=== PATIENT | female | born 1950 ===

== ENCOUNTER 2023-03-11 05:11 | Day surgery (SDC) | payer OTHER ==
[2023-03-07 08:27] LABS: HEMATOCRIT 42.5 % (36.0-45.00); HEMOGLOBIN 14.5 g/dL (12.0-15.00); MEAN CELL VOLUME 95.1 fL (80.00-100.00); MEAN CORPUSCULAR HEMOGLOBIN 32.3 pg (27.00-32.0); PLATELET COUNT 271 K/uL (150-450); RED BLOOD COUNT 4.47 M/uL (4.00-6.00); RED CELL DISTRIBUTION WIDTH 13.8 % (11.5-14.5)
[2023-03-07 08:41] LABS: PH,URINE 5.5 (5.0-8.0); URINE APPEARANCE Clear; URINE BILIRRUBIN Negative (NEGATIVE); URINE BLOOD Negative; URINE COLOR Yellow; URINE GLUCOSE Negative (NEGATIVE); URINE LEUKOCYTE Negative; URINE NITRATE Negative; URINE PROTEIN Negative (NEGATIVE); URINE UROBILINOGEN 0.2 E.U./dl
[2023-03-07 08:45] LABS: URINE BACTERIA 6.2 uL (0.0-1933); URINE EPITHELIAL CELLS 3.2 uL (0.0-38.8)
[2023-03-07 08:51] LABS: INR 0.97; PARTIAL THROMBOPLASTIN TIME 26.8 SECONDS (22.0-34.0); PROTHROMBIN TIME 10.2 SECONDS (9.0-11.5)
[2023-03-07 08:56] LABS: URINE WBC 1.5 uL (0.0-23.2)
[2023-03-07 08:58] LABS: BILIRUBIN TOTAL 1.12 mg/dL (0.3-1.2); CALCIUM 9.5 mg/dL (8.5-10.1); CREATININE SERUM 0.69 mg/dL (0.55-1.02); GFR 83.63; GLOBULINA 3.1 G/DL (2.4-3.5); PHOSPHOROUS 2.9 mg/dL (2.5-4.9); POTASSIUM 4.84 mEq/L (3.5-5.1); TOTAL PROTEIN 7.1 gm/dL (6.4-8.2)
[~2023-03-11 05:11] MED LIST: CHILDREN'S ASPI81 MG PO; DILTIAZEM ER120 M2 PO; LOSARTAN-HCTZ1 EACH PO; ZOCOR20 MG PO
[2023-03-11] MEDS ORDERED: TRAM1TAB98 PO (08:27)
== END 2023-03-11 11:10 | disposition home or self-care (01) ==
LOC: CIR.AMB 05:11 → AMB-ENDOS 07:00 → CIR.AMB 11:10
PROVIDERS: ATTEND Surgery
DX: R15.9 Full incontinence of feces (principal); I10 Essential (primary) hypertension; Z20.822 Contact with and (suspected) exposure to COVID-19; E78.5 Hyperlipidemia, unspecified
CPT/HCPCS: 64561; 95972; C1778

== ENCOUNTER 2023-03-25 05:15 | Day surgery (SDC) | payer OTHER ==
[~2023-03-25 05:15] MED LIST changes: +TRAM1TAB98 PO
== END 2023-03-25 10:35 | disposition home or self-care (01) ==
LOC: CIR.AMB 05:15
PROVIDERS: ATTEND Surgery
DX: R15.9 Full incontinence of feces (principal); I10 Essential (primary) hypertension
CPT/HCPCS: 64590; 95972; C1767